=== PATIENT | female | born 1970 ===

== ENCOUNTER 2018-09-25 11:44 | Emergency (ER) | payer OTHER ==
[2018-09-25 11:44] VITALS: BMI 30.1
[2018-09-25 12:03] VITALS: RESP 16; TEMP 97.5
--- NOTE | 2018-09-25 12:18 | C.PDOC ---
History Of Present Illness 47 yo female, hx of dm, present sfrom her work. reported dizziness and miller since this am. upon ed arrival, pt appears solmulent, refusing to move or answer questsions, but she actively deflects arms and protects face when held abover her head. after stsernal rub she responds to all questions. pt poor historian. no fevers, no cough, nopain. at bedside pt only c/cristian dizzines miller. Time Seen by Provider: 09/25/18 12:01 Chief Complaint (Nursing): Dizziness/Lightheaded Past Medical History Reviewed: Historical Data, Nursing Documentation, Vital Signs Vital Signs: Last Vital Signs Temp 97.5 F L 09/25/18 11:53 Pulse 52 L 09/25/18 11:53 Resp 16 09/25/18 11:53 BP 127/78 09/25/18 11:53 Pulse Ox 98 09/25/18 11:53 - Medical History PMH: Diabetes, Gastritis Denies: Arthritis, CHF, COPD, Hepatitis, HIV, HTN, Hypercholesterolemia, Hypothyroidism, Chronic Kidney Disease, Rheumatoid Arthritis, Seizures, Sexually Transmitted Disease Surgical History: Cholecystectomy Family History: States: Unknown Family Hx - Social History Hx Alcohol Use: Yes Hx Substance Use: No - Immunization History Hx Tetanus Toxoid Vaccination: No Physical Exam - Physical Exam Appears: Well, No Acute Distress, Other (anxous, activley deflects arms) Skin: Normal Color, Warm, Dry Eye(s): bilateral: Normal Inspection, PERRL, EOMI Nose: Normal Throat: Normal Neck: Normal Cardiovascular: Rhythm Regular Respiratory: Normal Breath Sounds Gastrointestinal/Abdominal: Normal Exam Back: Normal Inspection Extremity: Normal ROM ED Course And Treatment - Laboratory Results Result Diagrams: 09/25/18 12:24 09/25/18 12:24 O2 Sat by Pulse Oximetry: 98 Medical Decision Making Medical Decision Making: highly suspect coversion disorder, will eval for other pathology ekg nsr 62 no nst t wave cahgnes normal interval.s s/p ativan, pt at abseline, labs neg. imaigng neg. symtpos resolve.d likely conversion Disposition - Disposition Referrals: Charbel Nielson MD [Staff Provider] - Aristeo Harrington MD [Staff Provider] - Disposition: HOME/ ROUTINE Disposition Time: 13:40 Condition: STABLE Additional Instructions: please follow up with your doctor/clinic. return to er with worsening symptoms or concerns. Prescriptions: Meclizine [Meclizine*] 25 mg PO Q6 PRN #30 tab PRN Reason: Dizziness Instructions: Headache, Adult, Dizziness, Nonvertigo, (DC) Forms: [employer] (Guinean) - Clinical Impression Clinical Impression: Conversion disorder, Dizziness
[2018-09-25 12:30] LABS: BASO % 0.3 % (0.0-2.0); EOS # 0.1 K/uL (0.0-0.7); EOS % 1.4 % (0.0-4.0); HEMOGLOBIN 13.2 g/dL (11.0-16.0); LYMPH # 1.3 K/uL (1.0-4.3); MEAN CELL VOLUME 87.3 fL (81.0-99.0); MEAN CORPUSCULAR HEMOGLOBIN 29.6 pg (27.0-31.0); MEAN CORPUSCULAR HGB CONC 33.9 g/dL (33.0-37.0); MEAN PLATELET VOLUME 10.2 fL (7.2-11.7); MONO # 0.5 K/uL (0.0-0.8); MONO % 6.9 % (0.0-10.0); NEUT # 5.2 K/uL (1.8-7.0); NEUT % 73.4 % (50.0-75.0); RBC 4.44 Mil/uL (3.80-5.20); RED CELL DISTRIBUTION WIDTH 13.6 % (11.5-14.5); WHITE BLOOD COUNT 7.1 K/uL (4.8-10.8)
[2018-09-25 12:38] LABS: PROTHROMBIN TIME 11.4 SECONDS (9.7-12.2)
[2018-09-25 12:49] LABS: ALB/GLOB RATIO 1.4 (1.0-2.1); ALBUMIN 4.7 g/dL (3.5-5.0); ALT/SGPT 28 U/L (9-52); AST/SGOT 36 U/L (14-36); BLOOD UREA NITROGEN 17 mg/dL (7-17); CALCIUM 9.9 mg/dl (8.6-10.4); GFR NON-AFRICAN AMERICAN > 60
--- NOTE | 2018-09-25 12:51 | RAD ---
Date of service: 09/25/2018 PROCEDURE: CHEST RADIOGRAPH, 1 VIEW HISTORY: Chest pain COMPARISON: None available. FINDINGS: LUNGS: The lungs are well clear. There are low lung volumes. PLEURA: No pneumothorax or pleural effusion. CARDIOVASCULAR: The heart is normal in size. No aortic atherosclerotic calcifications present. OSSEOUS STRUCTURES: Within normal limits for the patient's age. VISUALIZED UPPER ABDOMEN: Normal. OTHER FINDINGS: None. IMPRESSION: No active pulmonary disease.
--- NOTE | 2018-09-25 13:20 | CT ---
Date of service: 09/25/2018 PROCEDURE: CT HEAD WITHOUT CONTRAST. HISTORY: Headache and dizziness COMPARISON: None available. TECHNIQUE: Axial computed tomography images were obtained through the head/brain without intravenous contrast. Radiation dose: Total exam DLP = 1058.29 mGy-cm. This CT exam was performed using one or more of the following dose reduction techniques: Automated exposure control, adjustment of the mA and/or kV according to patient size, and/or use of iterative reconstruction technique. FINDINGS: HEMORRHAGE: No intracranial hemorrhage. BRAIN: Jensen-white matter differentiation is preserved. There is no mass, mass effect or abnormal extra-axial fluid collection. There is no territorial infarction. The midline sagittal structures are normal. VENTRICLES: The ventricles are normal in size, shape and configuration. CALVARIUM: There is no calvarial fracture or extracranial soft tissue swelling. PARANASAL SINUSES: Predominantly clear. MASTOID AIR CELLS: Predominantly clear. OTHER FINDINGS: None. IMPRESSION: No acute intracranial abnormality. If there is a persistent focal neurologic deficit and an ongoing clinical concern for acute infarction, an MRI of the brain without intravenous contrast would be a more sensitive modality for evaluation of hyperacute/acute ischemic infarction.
[2018-09-25 13:41] VITALS: BP 116/73; PULSE 59
[2018-09-25 13:55] LABS: ACETAMINOPHEN < 10.0 ug/mL (10.0-30.0); SALICYLATE < 1.0 mg/dL 1
[2018-09-25 15:47] VITALS: O2SAT 98
--- NOTE | 2018-09-29 21:53 | CARD ---
APPROVED REPORT Date of service: 09/25/2018 EKG Measurement Heart [id number] TX 170P-8 [id number] <Conclusion> Normal sinus rhythm Normal ECG
== END 2018-09-25 13:56 | disposition home or self-care (01) ==
LOC: C.ER 11:44
DX: R42 Dizziness and giddiness (principal); F44.9 Dissociative and conversion disorder, unspecified; E11.9 Type 2 diabetes mellitus without complications
CPT/HCPCS: 70450; 71045; 80053; 80320; 80329; 82948; 83735; 84100; 84484; 85025; 85610; 85730; 93005; 96374; 99284; J2060